=== PATIENT | male | born 1970 | race Caucasian/White ===

== ENCOUNTER 2023-11-24 22:47 | Observation (INO) | payer MEDICAID ==
[~2023-11-24] VITALS: Ht 170.1 cm; Wt 105.7 kg
[2023-11-24 23:00] VITALS: BP 114/52
[2023-11-24 23:48] LABS: BASO % 0.4 % (0.0-1.0); EOS # 0.4 10*3/uL (0.0-0.4); HEMATOCRIT 38.9 % (42.0-52.0); LYMPH % 28.6 % (27.0-41.0); MEAN CELL VOLUME 88.6 fl (80.0-94.0); MEAN CORPUSCULAR HGB 29.2 pg (27.0-31.0); MEAN CORPUSCULAR HGB CONC 32.9 g/dl (33.0-37.0); MEAN PLATELET VOLUME 9.6 fl (9.6-12.3); MONO # 0.6 10*3/uL (0.1-1.0); MONO % 8.2 % (3.0-9.0); NEUT # 4.1 10*3/uL (2.3-7.9); NEUT % 57.5 % (47.0-73.0); PLATELET COUNT AUTOMATED 164 10*3/uL (130-400); RED BLOOD COUNT 4.39 10*6/uL (4.50-5.90); RED CELL DISTRI WIDTH 14.5 % (0-14.5); WHITE BLOOD COUNT 7.1 10*3/uL (4.8-10.8)
[2023-11-25 00:10] LABS: ALKALINE PHOSPHATASE 88 U/L (46-116); BUN 6 mg/dl (9-23); CHLORIDE 101 mmol/L (98-107); POTASSIUM 3.2 mmol/L (3.4-5.1); SGPT/ALT 14 U/L (5-49); TOTAL PROTEIN 6.9 gm/dL (6.0-8.0)
[2023-11-25 00:37] VITALS: BP 106/47
[2023-11-25] MEDS ORDERED: POTASSIUM CHLORIDE 20 MEQ TAB PO ONE ×2 (01:50→02:20)
[2023-11-25 01:57] VITALS: BP 130/66
[2023-11-25] MEDS ORDERED: MECLIZINE HCL25 M2 PO (01:57)
[2023-11-25] MEDS ORDERED: JANUVIA100 MG PO (01:58)
[2023-11-25] MEDS ORDERED: METOPROLOL TAR100 M1 PO (01:58)
[2023-11-25] MEDS ORDERED: ATORVASTATIN CA20 M1 PO (01:58)
[2023-11-25] MEDS ORDERED: HYDROCHLOROTHIA25 M1 PO (01:58)
[2023-11-25] MEDS ORDERED: METFORMIN HYD1000 MG PO (01:58)
[2023-11-25] MEDS ORDERED: LISINOPRIL10 M1 PO (01:58)
[2023-11-25] MEDS ORDERED: TEMAZEPAM 15 MG CAP PO PRN (02:10)
[2023-11-25] MEDS ORDERED: Magnesium Hydroxide 30 ML UDC PO PRN (02:10)
[2023-11-25] MEDS ORDERED: BISACODYL 5 MG TAB PO PRN (02:10)
[2023-11-25] MEDS ORDERED: ACETAMINOPHEN 650 MG SUPP R PRN (02:10)
[2023-11-25] MEDS ORDERED: Ondansetron Hydrochloride 4 MG/2 ML VIAL IV PRN (02:10)
[2023-11-25] MEDS ORDERED: BISACODYL 10 MG SUPP R PRN (02:10)
[2023-11-25] MEDS ORDERED: Acetaminophen/Hydrocodone 5 MG/325 MG TABLET PO PRN (02:10)
[2023-11-25] MEDS ORDERED: ACETAMINOPHEN 325 MG TAB PO PRN (02:10)
[2023-11-25] MEDS ORDERED: MORPHINE Sulfate 2 MG/ML SYR IV PRN (02:10)
[2023-11-25] MEDS ORDERED: DEXTROSE 10 % IN WATER 250 ML IV PRN (03:35)
[2023-11-25 06:27] LABS: BASO % 0.5 % (0.0-1.0); EOS # 0.3 10*3/uL (0.0-0.4); EOS % 5.7 % (1.0-4.0); HEMATOCRIT 39.2 % (42.0-52.0); LYMPH # 1.6 10*3/uL (1.3-4.4); LYMPH % 25.9 % (27.0-41.0); MEAN CELL VOLUME 86.9 fl (80.0-94.0); MEAN CORPUSCULAR HGB 29.5 pg (27.0-31.0); MEAN CORPUSCULAR HGB CONC 33.9 g/dl (33.0-37.0); MEAN PLATELET VOLUME 9.7 fl (9.6-12.3); MONO # 0.5 10*3/uL (0.1-1.0); MONO % 8.9 % (3.0-9.0); NEUT # 3.5 10*3/uL (2.3-7.9); NEUT % 58.8 % (47.0-73.0); PLATELET COUNT AUTOMATED 156 10*3/uL (130-400); RED BLOOD COUNT 4.51 10*6/uL (4.50-5.90); RED CELL DISTRI WIDTH 14.6 % (0-14.5)
[2023-11-25 06:38] LABS: ACT PARTIAL THROMBO TIME 26.8 SECONDS (20.0-32.1)
[2023-11-25 06:59] LABS: ALKALINE PHOSPHATASE 84 U/L (46-116); BUN 6 mg/dl (9-23); CHLORIDE 101 mmol/L (98-107); CHOLESTEROL 128 mg/dL (<200); FREE T4 0.96 ng/dl (0.89-1.76); LDL CHOLESTEROL 71 mg/dL (9-159); POTASSIUM 3.7 mmol/L (3.4-5.1); SGPT/ALT 14 U/L (5-49); TOTAL PROTEIN 6.8 gm/dL (6.0-8.0); TRIGLYCERIDES 160 mg/dl (<150)
[2023-11-25] MEDS ORDERED: Technetium Tc 99M Tetrofosmi 0.23 MG KIT IJ SCH (07:30)
[2023-11-25] MEDS ORDERED: INSULIN LISPRO 1 UNIT/0.01 ML SQ SCH (07:30)
[2023-11-25 08:36] LABS: VITAMIN D, 25-HYDROXY 81.2 ng/mL (30-100)
[2023-11-25 09:00] VITALS: BP 135/71
[2023-11-25] MEDS ORDERED: HYDROCHLOROTHIAZIDE 25 MG TAB PO SCH (10:00)
[2023-11-25] MEDS ORDERED: Enoxaparin Sodium 40 MG/0.4 ML SYR SC SCH (10:00)
[2023-11-25] MEDS ORDERED: Metoprolol Tartrate 100 MG TAB PO SCH (10:00)
[2023-11-25] MEDS ORDERED: LISINOPRIL 10 MG TAB PO SCH (10:00)
[2023-11-25 12:29] VITALS: BP 122/80
[2023-11-25] MEDS ORDERED: ATORVASTATIN CALCIUM 20 MG TAB PO SCH (22:00)
== END 2023-11-25 15:33 | disposition home or self-care (01) ==
LOC: ED 22:47 → EDHOLD 11-25 02:02
PROVIDERS: Emergency Medicine; Student in an Organized Health Care Education/Training Program; ADMIT Internal Medicine; ATTEND Internal Medicine
DX: R07.89 Other chest pain (principal); I10 Essential (primary) hypertension; E11.9 Type 2 diabetes mellitus without complications; E78.5 Hyperlipidemia, unspecified; F41.9 Anxiety disorder, unspecified; Z79.899 Other long term (current) drug therapy

== ENCOUNTER 2023-12-05 15:03 | Emergency (ER) | payer MEDICAID ==
[~2023-12-05] VITALS: Ht 170.1 cm; Wt 113.4 kg
[~2023-12-05 15:03] MED LIST: ATORVASTATIN CA20 M1 PO; HYDROCHLOROTHIA25 M1 PO; JANUVIA100 MG PO; LISINOPRIL10 M1 PO; MECLIZINE HCL25 M2 PO; METFORMIN HYD1000 MG PO; METOPROLOL TAR100 M1 PO
[2023-12-05] MEDS ORDERED: CITALOPRAM20 MG PO (15:14)
[2023-12-05] MEDS ORDERED: OMEPRAZOLE MAGN20 MG PO (15:14)
[2023-12-05] MEDS ORDERED: Dexamethasone Sodium Phospha 20 MG/5 ML VIAL IM ONE (16:00)
[2023-12-05] MEDS ORDERED: SODIUM CHLORIDE 0.9% 1,000 ML IV ONE (16:00)
[2023-12-05] MEDS ORDERED: Meclizine Hydrochloride 12.5 MG TAB PO ONE (16:00)
[2023-12-05 16:09] LABS: BASO % 0.5 % (0.0-1.0); EOS # 0.1 10*3/uL (0.0-0.4); EOS % 1.8 % (1.0-4.0); HEMATOCRIT 40.9 % (42.0-52.0); LYMPH # 1.7 10*3/uL (1.3-4.4); LYMPH % 21.9 % (27.0-41.0); MEAN CELL VOLUME 88.7 fl (80.0-94.0); MEAN CORPUSCULAR HGB 29.3 pg (27.0-31.0); MEAN PLATELET VOLUME 9.4 fl (9.6-12.3); MONO # 0.5 10*3/uL (0.1-1.0); MONO % 6.2 % (3.0-9.0); NEUT # 5.5 10*3/uL (2.3-7.9); NEUT % 69.5 % (47.0-73.0); PLATELET COUNT AUTOMATED 154 10*3/uL (130-400); RED BLOOD COUNT 4.61 10*6/uL (4.50-5.90); RED CELL DISTRI WIDTH 14.8 % (0-14.5); WHITE BLOOD COUNT 7.9 10*3/uL (4.8-10.8)
[2023-12-05 16:20] LABS: ACT PARTIAL THROMBO TIME 24.5 SECONDS (20.0-32.1)
[2023-12-05 16:33] LABS: ALKALINE PHOSPHATASE 88 U/L (46-116); BUN 8 mg/dl (9-23); CHLORIDE 100 mmol/L (98-107); POTASSIUM 3.6 mmol/L (3.4-5.1); SGPT/ALT 17 U/L (5-49); TOTAL PROTEIN 6.9 gm/dL (6.0-8.0)
== END 2023-12-05 17:58 | disposition home or self-care (01) ==
LOC: ED 15:03
PROVIDERS: Internal Medicine
DX: H81.10 Benign paroxysmal vertigo, unspecified ear (principal); R11.2 Nausea with vomiting, unspecified; M25.511 Pain in right shoulder; F17.200 Nicotine dependence, unspecified, uncomplicated; Z88.0 Allergy status to penicillin; Z88.2 Allergy status to sulfonamides; Z91.041 Radiographic dye allergy status; Z91.013 Allergy to seafood; Z98.890 Other specified postprocedural states

== ENCOUNTER 2023-12-14 22:29 | Emergency (ER) | payer MEDICAID ==
[~2023-12-14] VITALS: Ht 170.1 cm; Wt 113.4 kg
[~2023-12-14 22:29] MED LIST changes: +CITALOPRAM20 MG PO; +OMEPRAZOLE MAGN20 MG PO
[2023-12-14] MEDS ORDERED: VAZALORE81 MG PO (22:47)
[2023-12-15] MEDS ORDERED: methylPREDNISolone sod succ 125 MG VIAL IM ONE (00:05)
[2023-12-15] MEDS ORDERED: METHOCARBAMOL 500 MG TAB PO ONE (00:10)
[2023-12-15] MEDS ORDERED: NAPROXEN250 MG PO (00:33)
[2023-12-15] MEDS ORDERED: METHOCARBAMOL750 M1 PO (00:33)
== END 2023-12-15 00:50 | disposition home or self-care (01) ==
LOC: ED 22:29
DX: S16.1XXA Strain of muscle, fascia and tendon at neck level, initial encounter (principal); R42 Dizziness and giddiness; F17.200 Nicotine dependence, unspecified, uncomplicated; Z88.0 Allergy status to penicillin; Z88.2 Allergy status to sulfonamides; Z91.041 Radiographic dye allergy status; Z91.013 Allergy to seafood; Z79.899 Other long term (current) drug therapy; Z79.84 Long term (current) use of oral hypoglycemic drugs; Z79.82 Long term (current) use of aspirin; X58.XXXA Exposure to other specified factors, initial encounter; Y93.89 Activity, other specified; Y92.89 Other specified places as the place of occurrence of the external cause; Y99.8 Other external cause status